=== PATIENT | female | born 1950 | race Two or more races ===

== ENCOUNTER 2020-06-23 21:18 | Inpatient (IN) | payer MEDICAID ==
[~2020-06-23] VITALS: Ht 165.1 cm; Wt 102.1 kg
[2020-06-23] MEDS ORDERED: SODIUM CHLORIDE 0.9% 1,000 ML IV ONE (23:00)
[2020-06-23] MEDS ORDERED: ACETAMINOPHEN 500MG TABLET PO ONE (23:00)
[2020-06-24] VITALS (25 sets, daily range): BP systolic 81–132; BP diastolic 37–91
[2020-06-24 00:05] LABS: HEMATOCRIT. 40.3 % (36.0-48.0); HEMOGLOBIN. 13.2 g/dL (12.0-16.0); MEAN CORPUSCULAR HEMOGLOBIN 25.6 pg (28.0-32.0); MEAN CORPUSCULAR VOLUME 78.2 fL (81.0-99.0); PLATELET 218 x1000/uL (130-400); RED BLOOD CELL COUNT 5.15 mill/uL (4.2-5.4); RED CELL DISTRIBUTION WIDTH 14.9 % (11.6-14.6)
[2020-06-24 00:09] LABS: CHLORIDE 102 mEq/L (98-107)
[2020-06-24 00:12] LABS: D-DIMER 1.08 mg/L FEU (<0.50)
[2020-06-24] MEDS ORDERED: PIPERACILLIN/TAZOBACTAM 3.375GM/50ML PREMIX IV SCH (00:30)
[2020-06-24] MEDS ORDERED: VANCOMYCIN 1 G PREMIX 200 ML IV SCH (01:00)
[2020-06-24] MEDS ORDERED: ENOXAPARIN 100MG/ML SYR SUBCUT SCH ×2 (01:00→11:00)
[2020-06-24 01:17] LABS: PLATELET ESTIMATE NORMAL
[2020-06-24 01:46] LABS: CLARITY URINE CLEAR (CLEAR); COLOR URINE YELLOW (YELLOW); KETONES URINE NEGATIVE (NEGATIVE); LEUKOCYTE ESTERASE URINE 1+ (NEGATIVE); NITRITE URINE POSITIVE (NEGATIVE); OCCULT BLOOD URINE TRACE (NEGATIVE); PROTEIN URINE TRACE (NEGATIVE); SPECIFIC GRAVITY URINE 1.024 (1.005-1.030)
[2020-06-24] MEDS: DEXT 5%/0.9% NACL 1,000 ML IV SCH (06:10)
[2020-06-24] MEDS: CEFTRIAXONE 1,000 MG in DEXTROSE 5% WATER 50 ML IV SCH (06:10)
[2020-06-24] MEDS: AZITHROMYCIN 500 MG in DEXT 5% WATER 250 ML IV SCH (07:40)
[2020-06-24] MEDS ORDERED: ACETAMINOPHEN 325MG TABLET PO PRN (09:15)
[2020-06-24] MEDS ORDERED: ONDANSETRON HCL 4MG TABLET PO SCH (10:00)
[2020-06-24 11:53] LABS: HEMATOCRIT. 38.5 % (36.0-48.0); HEMOGLOBIN. 12.5 g/dL (12.0-16.0); MEAN CORPUSCULAR HEMOGLOBIN 25.5 pg (28.0-32.0); MEAN CORPUSCULAR VOLUME 78.7 fL (81.0-99.0); MEAN PLATELET VOLUME 11.1 fl (7.4-10.4); PLATELET 171 x1000/uL (130-400); RED BLOOD CELL COUNT 4.89 mill/uL (4.2-5.4)
[2020-06-24 12:01] LABS: CHLORIDE 105 mEq/L (98-107)
[2020-06-24 12:07] LABS: TOTAL IRON BINDING CAPACITY 438 ug/dL (250-450)
[2020-06-24 12:22] LABS: T4 FREE 1.25 ng/dL (0.76-1.46)
[2020-06-24 13:06] LABS: VITAMIN B12 SERUM 400 pg/mL (211-911)
[2020-06-24] MEDS ORDERED: POTASSIUM CHLORIDE 20MEQ TABLET SR PO SCH (13:15)
[2020-06-24 14:01] LABS: PLATELET ESTIMATE NORMAL
[2020-06-24 17:50] LABS: *AMPHETAMINES SCREEN URINE NEGATIVE (NEGATIVE); *BARBITURATES SCREEN URINE NEGATIVE (NEGATIVE); *BENZODIAZEPINES SCREEN URINE NEGATIVE (NEGATIVE); *COCAINE SCREEN URINE NEGATIVE (NEGATIVE)
[2020-06-24 17:52] LABS: CANNABINOID URINE SCREEN NEGATIVE (NEGATIVE); METHADONE URINE SCREEN NEGATIVE (NEGATIVE); OPIATES URINE SCREEN NEGATIVE (NEGATIVE); PHENCYCLIDINE URINE SCREEN NEGATIVE (NEGATIVE)
[2020-06-25] VITALS (45 sets, daily range): BP systolic 103–174; BP diastolic 35–95
[2020-06-25] MEDS: CEFTRIAXONE 1,000 MG in DEXTROSE 5% WATER 50 ML IV SCH (04:57)
[2020-06-25 05:08] LABS: BASOPHILS % 0.6 % (0.0-2.0); EOSINOPHILS % 0.3 % (0.0-5.0); HEMATOCRIT. 34.6 % (36.0-48.0); HEMOGLOBIN. 11.4 g/dL (12.0-16.0); LYMPHOCYTES % 11.3 % (20.0-50.0); MEAN CORPUSCULAR HEMOGLOBIN 25.6 pg (28.0-32.0); MEAN PLATELET VOLUME 10.8 fl (7.4-10.4); MONOCYTES % 7.1 % (2.0-8.0); NEUTROPHILS % 80.7 % (40.0-76.0); PLATELET 193 x1000/uL (130-400); RED BLOOD CELL COUNT 4.44 mill/uL (4.2-5.4); RED CELL DISTRIBUTION WIDTH 15.2 % (11.6-14.6)
[2020-06-25 05:15] LABS: CHLORIDE 107 mEq/L (98-107)
[2020-06-25] MEDS: DEXT 5%/0.9% NACL 1,000 ML IV SCH ×2 (06:02→21:23)
[2020-06-25] MEDS: AZITHROMYCIN 500 MG in DEXT 5% WATER 250 ML IV SCH (07:10)
[2020-06-25] MEDS ORDERED: ENOXAPARIN 30MG/0.3ML SYR SUBCUT SCH (09:00)
[2020-06-25] MEDS: ENOXAPARIN 30MG/0.3ML SYR SUBCUT SCH ×2 (10:17→21:23)
[2020-06-25] MEDS ORDERED: LEVO500T2 MT (11:30)
[2020-06-26] MEDS ORDERED: LEVO500T2 MT (10:55)
== END 2020-06-25 22:45 | disposition home or self-care (01) | DRG 720 ==
LOC: ER 23:51 → 7WST 06-24 01:18 → EDBEDREQ 06-24 01:23 → EDBEDREQTM 06-24 01:23 → EDBEDREQSVC 06-24 01:23 → EDBEDREQDT 06-24 01:23 → ENRESERV 06-24 02:16 → CMPBEDREQ 06-24 03:16 → MICUSO 06-24 16:09
PROVIDERS: ADMIT Internal Medicine Nephrology; ATTEND Internal Medicine Nephrology
DX: A41.9 Sepsis, unspecified organism (principal); E03.9 Hypothyroidism, unspecified; G93.41 Metabolic encephalopathy; E66.9 Obesity, unspecified; E87.1 Hypo-osmolality and hyponatremia; E87.2 Acidosis; I44.2 Atrioventricular block, complete; N39.0 Urinary tract infection, site not specified; Z90.49 Acquired absence of other specified parts of digestive tract; E05.90 Thyrotoxicosis, unspecified without thyrotoxic crisis or storm; Z20.828 Contact with and (suspected) exposure to other viral communicable diseases; Z79.1 Long term (current) use of non-steroidal anti-inflammatories (NSAID); Z71.3 Dietary counseling and surveillance; Z68.37 Body mass index [BMI] 37.0-37.9, adult
CPT/HCPCS: 36415; 71045; 80048; 80053; 80305; 81003; 82140; 82607; 82728; 83540; 83550; 83605; 83615; 83735; 84145; 84439; 84443; 84481; 84484; 85025; 85379; 85384; 86140; 87077; 87186; 87635; 87804; 93005; 93970; 99291; J0456; J0696; J1650; J2543; J3370; J7030; J7042; J7060; Q0162